=== PATIENT | female | born 1985 | race Caucasian/White ===

== ENCOUNTER 2018-04-07 12:40 | Outpatient (CLI) | payer OTHER, MEDICAID | END 2018-04-07 14:34 | disposition home or self-care (01) | LOC: OBT 12:40 → L-D 12:41 → OBT 14:34 | DX: O46.8X3 Other antepartum hemorrhage, third trimester (principal); Z3A.38 38 weeks gestation of pregnancy | CPT/HCPCS: 76818 ==

== ENCOUNTER 2018-04-10 10:51 | Outpatient (CLI) | payer OTHER | END 2018-04-10 12:45 | disposition home or self-care (01) | LOC: OBT 10:51 → L-D 10:51 → OBT 12:45 | DX: O46.8X3 Other antepartum hemorrhage, third trimester (principal); Z3A.38 38 weeks gestation of pregnancy | CPT/HCPCS: 76818 ==

== ENCOUNTER 2018-04-16 15:31 | Outpatient (CLI) | payer OTHER | END 2018-04-16 18:51 | disposition home or self-care (01) | LOC: OBT 15:31 → L-D 15:32 → OBT 18:51 | DX: O62.9 Abnormality of forces of labor, unspecified (principal); Z3A.39 39 weeks gestation of pregnancy | CPT/HCPCS: 76818 ==

== ENCOUNTER 2018-04-17 20:26 | Inpatient (IN) | payer OTHER ==
[2018-04-17] MEDS ORDERED: CARBOPROST 250 MCG INJ IM (21:30)
[2018-04-17] MEDS ORDERED: OXYTOCIN 30 UNITS/LR 500 ML IV ×2 (21:30)
[2018-04-17] MEDS ORDERED: BUTORPHANOL 2 MG INJ IV (21:30)
[2018-04-17] MEDS ORDERED: LIDOCAINE 1% (MPF) 30 ML INJ INJ (21:30)
[2018-04-17] MEDS ORDERED: MISOPROSTOL 200 MCG TAB PR (21:30)
[2018-04-17] MEDS ORDERED: METHYLERGONOVINE 0.2 MG INJ IM (21:30)
[2018-04-17] MEDS ORDERED: IBUPROFEN 600 MG TAB PO (21:30)
[2018-04-17] MEDS: LACTATED RINGER'S 1,000 ML IV (21:59)
[2018-04-17 22:55] LABS: WHITE BLOOD COUNT 11.4 10^3/ul (4.8-10.8)
[2018-04-17 22:55] LABS: ADD MAN DIFF? NO; BASOPHILS % 0.4 % (0.0-2.0); EOSINOPHILS % 0.2 % (0.0-7.0); HEMATOCRIT 32.3 % (37.0-47.0); HEMOGLOBIN 10.8 g/dl (12.0-16.0); LYMPHOCYTES # 1.8 10^3/ul (0.8-2.9); LYMPHOCYTES % 15.9 % (15.0-51.0); MEAN CORPUSCULAR HEMOGLOBIN 28.5 pg (29.0-33.0); MEAN CORPUSCULAR HGB CONC 33.4 g/dl (32.0-37.0); MEAN CORPUSCULAR VOLUME 85.2 fl (82.0-101.0); MEAN PLATELET VOLUME 12.5 fl (7.4-10.4); MONOCYTE # 0.7 10^3/ul (0.3-0.9); NEUTROPHIL # 8.7 10^3/ul (1.6-7.5); NEUTROPHILS % 76.8 % (39.0-77.0); PLATELET COUNT 170 10^3/UL (140-415); RED BLOOD COUNT 3.79 10^6/ul (4.20-5.40); RED CELL DISTRIBUTION WIDTH 13.6 % (11.5-14.5)
[2018-04-17 23:26] LABS: INR 0.92; PROTIME 12.4 Sec (11.9-14.9)
[2018-04-17 23:27] LABS: PARTIAL THROMBOPLASTIN TIME 31.9 Sec (23.0-35.0)
[2018-04-18] MEDS: LACTATED RINGER'S 1,000 ML IV ×4 (00:49→18:17)
[2018-04-18] MEDS ORDERED: FENTAnyl 2MCG/ML-ROPIV 0.2% 100 ML (04:23)
[2018-04-18] MEDS ORDERED: NALOXONE (0.4 MG/ML) INJ IV ×2 (04:30→18:00)
[2018-04-18] MEDS ORDERED: ONDANSETRON 4 MG INJ IV ×2 (04:30→18:00)
[2018-04-18] MEDS: OXYTOCIN 30 UNITS/LR 500 ML IV ×2 (05:58→23:29)
[2018-04-18] MEDS: ACETAMINOPHEN 325 MG TAB PO (08:49)
[2018-04-18 09:21] LABS: LACTIC ACID 1.3 mmol/L (0.5-2.0)
[2018-04-18] MEDS: AMPICILLIN 2 GM/NS (PMX) 100 ML IVPB (09:23)
[2018-04-18 09:43] LABS: ADD UMIC YES; UR ASCORBIC ACID NEGATIVE (NEGATIVE); UR BILIRUBIN (Dip) NEGATIVE (NEGATIVE); UR BLOOD (Dip) 2+ mg/dL (NEGATIVE); UR CLARITY SLIGHTLY CLOUDY (CLEAR); UR COLOR YELLOW (YELLOW); UR GLUCOSE (Dip) NEGATIVE (NEGATIVE); UR KETONES (Dip) 2+ mg/dL (NEGATIVE); UR LEUKOCYTE ESTERASE (Dip) TRACE Leu/ul (NEGATIVE); UR MUCUS FEW /HPF (NONE SEEN); UR NITRITE (Dip) NEGATIVE (NEGATIVE); UR RBC 104 /HPF (0-5); UR SPECIFIC GRAVITY (Dip) 1.019 (1.003-1.030); UR SQUAMOUS EPITHELIAL CELL FEW /HPF (FEW); UR TOTAL PROTEIN (Dip) 1+ mg/dl (NEGATIVE); UR UROBILINOGEN (Dip) 1+ mg/dL (NEGATIVE); UR WBC 5 /HPF (0-5)
[2018-04-18] MEDS: DIPHENHYDRAMINE 50 MG INJ IV (11:14)
[2018-04-18] MEDS: FENTAnyl 2MCG/ML-ROPIV 0.2% 100 ML BAG EPI (11:49)
[2018-04-18] MEDS: AMPICILLIN 1 GM/NS (PMX) 50 ML IVPB (13:16)
[2018-04-18] MEDS: GENTAMICIN 80 MG/NS (PMX) 50 ML IVPB (15:19)
[2018-04-18] MEDS ORDERED: CEFAZOLIN 2 GM/50 ML (PMX) 50 ML IVPB (15:55)
[2018-04-18] MEDS: ACETAMINOPHEN 500 MG TAB PO (15:56)
[2018-04-18] MEDS: CEFAZOLIN 2 GM/50 ML (PMX) 50 ML IVPB (16:00)
[2018-04-18] MEDS ORDERED: LIDOCAINE 1.5%/EPI MPF (SDV) 30 ML VIAL (17:14)
[2018-04-18] MEDS ORDERED: FENTAnyl 50 MCG/ML VIAL (17:15)
[2018-04-18] MEDS ORDERED: SODIUM BICARBONATE (IV ADD) 50 ML (17:15)
[2018-04-18] MEDS ORDERED: DEXAMETHASONE 4 MG/ML 1 ML INJ (17:24)
[2018-04-18] MEDS ORDERED: morphine SULFATE/PF (10 MG/10 ML) INJ (17:44)
[2018-04-18] MEDS ORDERED: DIPHENHYDRAMINE 50 MG INJ IV (18:00)
[2018-04-18] MEDS ORDERED: ZOLPIDEM 5 MG TAB PO (18:00)
[2018-04-18] MEDS ORDERED: HYDROmorphONE 0.5 MG/0.5 ML SYG IV ×2 (18:00)
[2018-04-18] MEDS ORDERED: KETOROLAC 30 MG INJ IV (18:00)
[2018-04-18 18:04] LABS: Arterial Cord Blood pCO2 36.3 mmHG (25-50); MODE ROOM AIR; Site CORD
[2018-04-18] MEDS ORDERED: MISOPROSTOL 200 MCG TAB PR (18:30)
[2018-04-18] MEDS ORDERED: LANOLIN 7 GM TUBE TOP (18:30)
[2018-04-18] MEDS ORDERED: HYDROCODONE/APAP (5/325) TAB PO (18:30)
[2018-04-18] MEDS ORDERED: OXYTOCIN 30 UNITS/LR 500 ML IV (18:30)
[2018-04-18] MEDS ORDERED: CARBOPROST 250 MCG INJ IM (18:30)
[2018-04-18] MEDS ORDERED: METHYLERGONOVINE 0.2 MG INJ IM (18:30)
[2018-04-18] MEDS ORDERED: METHYLERGONOVINE 0.2 MG TAB PO (18:30)
[2018-04-18 19:31] LABS: RAPID PLASMA REAGIN NONREACTIVE (NR)
[2018-04-18] MEDS: SENNA/DOCUSATE NA (8.6MG/50MG) TAB PO (21:00)
[2018-04-18] MEDS: CLINDAMYCIN 900 MG/D5W (PMX) 50 ML IVPB (22:38)
[2018-04-19] MEDS: GENTAMICIN 80 MG/NS (PMX) 50 ML IVPB ×4 (01:00→23:32)
[2018-04-19] MEDS: LACTATED RINGER'S 1,000 ML IV ×6 (02:17→21:07)
[2018-04-19] MEDS: DIPHENHYDRAMINE 50 MG INJ IV (03:51)
[2018-04-19] MEDS: CLINDAMYCIN 900 MG/D5W (PMX) 50 ML IVPB ×3 (06:11→22:25)
[2018-04-19] MEDS: SENNA/DOCUSATE NA (8.6MG/50MG) TAB PO ×2 (08:33→21:29)
[2018-04-19 09:04] LABS: ADD MAN DIFF? NO
[2018-04-19 09:10] LABS: BASOPHILS % 0.1 % (0.0-2.0); HEMATOCRIT 26.9 % (37.0-47.0); LYMPHOCYTES # 1.8 10^3/ul (0.8-2.9); LYMPHOCYTES % 8.2 % (15.0-51.0); MEAN CORPUSCULAR HEMOGLOBIN 28.8 pg (29.0-33.0); MEAN CORPUSCULAR HGB CONC 33.5 g/dl (32.0-37.0); MEAN CORPUSCULAR VOLUME 86.2 fl (82.0-101.0); MEAN PLATELET VOLUME 11.6 fl (7.4-10.4); MONOCYTE # 0.8 10^3/ul (0.3-0.9); MONOCYTES % 3.7 % (0.0-11.0); NEUTROPHIL # 18.6 10^3/ul (1.6-7.5); NEUTROPHILS % 87.2 % (39.0-77.0); PLATELET COUNT 167 10^3/UL (140-415); RED BLOOD COUNT 3.12 10^6/ul (4.20-5.40)
[2018-04-19 09:10] LABS: WHITE BLOOD COUNT 21.4 10^3/ul (4.8-10.8)
[2018-04-19 09:45] LABS: ANION GAP 6 (5-13); BLOOD UREA NITROGEN 7 mg/dl (7-20); CALCIUM 8.6 mg/dl (8.4-10.2); CARBON DIOXIDE 22 mmol/L (21-31); CHLORIDE 106 mmol/L (97-110); CREATININE 0.48 mg/dl (0.44-1.00); Estimated GFR > 60 mL/min (>60); GLUCOSE 91 mg/dl (70-220); POTASSIUM 4.2 mmol/L (3.5-5.1); SODIUM 134 mmol/L (135-144)
[2018-04-19] MEDS: HYDROCODONE/APAP (5/325) TAB PO (17:10)
[2018-04-19] MEDS: IBUPROFEN 800 MG TAB PO (23:44)
[2018-04-20] MEDS: LACTATED RINGER'S 1,000 ML IV ×6 (02:17→22:21)
[2018-04-20] MEDS: CLINDAMYCIN 900 MG/D5W (PMX) 50 ML IVPB ×3 (05:25→23:04)
[2018-04-20] MEDS: GENTAMICIN 80 MG/NS (PMX) 50 ML IVPB ×2 (06:30→15:53)
[2018-04-20 08:36] LABS: ADD MAN DIFF? NO
[2018-04-20 08:42] LABS: BASOPHILS % 0.3 % (0.0-2.0); EOSINOPHILS % 0.2 % (0.0-7.0); HEMATOCRIT 24.7 % (37.0-47.0); HEMOGLOBIN 8.2 g/dl (12.0-16.0); LYMPHOCYTES # 2.4 10^3/ul (0.8-2.9); LYMPHOCYTES % 19.8 % (15.0-51.0); MEAN CORPUSCULAR HEMOGLOBIN 29.1 pg (29.0-33.0); MEAN CORPUSCULAR HGB CONC 33.2 g/dl (32.0-37.0); MEAN CORPUSCULAR VOLUME 87.6 fl (82.0-101.0); MEAN PLATELET VOLUME 11.8 fl (7.4-10.4); MONOCYTE # 0.5 10^3/ul (0.3-0.9); MONOCYTES % 4.1 % (0.0-11.0); NEUTROPHIL # 9.2 10^3/ul (1.6-7.5); NEUTROPHILS % 74.9 % (39.0-77.0); PLATELET COUNT 157 10^3/UL (140-415); RED BLOOD COUNT 2.82 10^6/ul (4.20-5.40); RED CELL DISTRIBUTION WIDTH 14.4 % (11.5-14.5)
[2018-04-20 08:42] LABS: WHITE BLOOD COUNT 12.2 10^3/ul (4.8-10.8)
[2018-04-20] MEDS: SENNA/DOCUSATE NA (8.6MG/50MG) TAB PO ×2 (10:08→21:30)
[2018-04-20] MEDS: IBUPROFEN 800 MG TAB PO ×2 (12:43→21:30)
[2018-04-20] MEDS: BISACODYL 10 MG SUPP PR (17:28)
[2018-04-20] MEDS: MAGNESIUM HYDROXIDE 30ML CUP PO (17:28)
[2018-04-21] MEDS: GENTAMICIN 80 MG/NS (PMX) 50 ML IVPB ×2 (00:07→08:13)
[2018-04-21] MEDS: LACTATED RINGER'S 1,000 ML IV ×2 (02:17)
[2018-04-21] MEDS: CLINDAMYCIN 900 MG/D5W (PMX) 50 ML IVPB ×2 (05:30→06:47)
[2018-04-21 07:45] LABS: ADD MAN DIFF? NO
[2018-04-21 07:56] LABS: WHITE BLOOD COUNT 7.8 10^3/ul (4.8-10.8)
[2018-04-21 07:57] LABS: BASOPHILS % 0.4 % (0.0-2.0); EOSINOPHILS # 0.1 10^3/ul (0.0-0.5); HEMATOCRIT 25.1 % (37.0-47.0); HEMOGLOBIN 8.3 g/dl (12.0-16.0); MEAN CORPUSCULAR HGB CONC 33.1 g/dl (32.0-37.0); MEAN CORPUSCULAR VOLUME 87.8 fl (82.0-101.0); MEAN PLATELET VOLUME 11.2 fl (7.4-10.4); MONOCYTE # 0.4 10^3/ul (0.3-0.9); MONOCYTES % 4.9 % (0.0-11.0); NEUTROPHIL # 5.3 10^3/ul (1.6-7.5); NEUTROPHILS % 67.9 % (39.0-77.0); PLATELET COUNT 191 10^3/UL (140-415); RED BLOOD COUNT 2.86 10^6/ul (4.20-5.40); RED CELL DISTRIBUTION WIDTH 14.4 % (11.5-14.5)
[2018-04-21 08:22] LABS: ANION GAP 6 (5-13); CARBON DIOXIDE 24 mmol/L (21-31); CHLORIDE 108 mmol/L (97-110); Estimated GFR > 60 mL/min (>60); SODIUM 138 mmol/L (135-144)
[2018-04-21 08:34] LABS: ALANINE AMINOTRANSFERASE 16 IU/L (13-69); ALBUMIN 2.9 g/dl (3.3-4.9); ALKALINE PHOSPHATASE 229 IU/L (42-121); ASPARTATE AMINO TRANSFERASE 20 IU/L (15-46); BILIRUBIN,INDIRECT 0.2 mg/dl (0-1.1); BILIRUBIN,TOTAL 0.2 mg/dl (0.2-1.3); BLOOD UREA NITROGEN 7 mg/dl (7-20); CALCIUM 8.6 mg/dl (8.4-10.2); CREATININE 0.47 mg/dl (0.44-1.00); GLUCOSE 76 mg/dl (70-220); TOTAL PROTEIN 5.8 g/dl (6.1-8.1)
[2018-04-21] MEDS: MAGNESIUM HYDROXIDE 30ML CUP PO (09:36)
[2018-04-21] MEDS: SENNA/DOCUSATE NA (8.6MG/50MG) TAB PO (09:37)
[2018-04-21] MEDS: IBUPROFEN 800 MG TAB PO ×2 (10:15→17:12)
[2018-04-21] MEDS: MEASLES,MUMPS,RUBELLA VACCINE INJ SC* (15:57)
[2018-04-21] MEDS: DIPHTH/TET/ACEL PERTUSS (ADULT) 0.5 ML VIAL IM* (15:58)
== END 2018-04-21 18:52 | disposition home or self-care (01) | DRG 786 ==
LOC: OBT 20:26 → L-D 04-18 04:21 → OBT 21:16 → L-D 04-18 20:22 → PP1 04-18 20:50 → L-D 21:42
PROVIDERS: Obstetrics & Gynecology
PROC: 10D00Z1 Extraction of Products of Conception, Low, Open Approach (ICD-10-PCS; principal; 2018-04-18 17:00)
DX: O99.02 Anemia complicating childbirth (principal); O41.1230 Chorioamnionitis, third trimester, not applicable or unspecified; O62.0 Primary inadequate contractions; O76 Abnormality in fetal heart rate and rhythm complicating labor and delivery; D50.9 Iron deficiency anemia, unspecified; Z3A.39 39 weeks gestation of pregnancy; Z37.0 Single live birth
CPT/HCPCS: 36600; 62319; 76815; 80048; 80053; 81001; 82803; 83605; 85025; 85610; 85730; 86592; 86850; 86900; 86901; 87040; 87070; 87086; 88307; 90715; 99464